=== PATIENT | female | born 1990 | race Caucasian/White ===

== ENCOUNTER 2017-07-01 23:29 | Emergency (ER) | payer SELFPAY ==
[2017-07-01 23:29] VITALS: BP 136/87; PULSE 95; RESP 16; TEMP 36.6; O2SAT 98; BMI 24.7
--- NOTE | 2017-07-01 23:41 | US_ITS ---
STUDY: FIRST TRIMESTER OBSTETRICAL ULTRASOUND REASON FOR EXAM: Female, 27 years old. Vaginal bleeding. Left lower quadrant pain LMP: April 30, 2017 TECHNIQUE: Transabdominal and Transvaginal PRIOR ULTRASOUND: None. FINDINGS: There is no demonstrated intrauterine gestational sac. The uterus measures 8.2 x 6 x 5.6. The endometrium is thickened and heterogeneous measures 23 mm in thickness. There is no demonstrated uterine fibroid. The cervix is closed. The right ovary is not visualized. The left ovary measures 3.6 x 2 point x2.3. There is no left ovarian cyst. There is no visualized left adnexal mass or complex lesion. There is a small amount of echogenic fluid in the pelvic cul-de-sac may represent hemorrhage. US/Transvaginal w/Preg US IMPRESSION: There is no evidence of intrauterine gestation. Small amount of echogenic fluid in the pelvic cul-de-sac suggesting hemorrhage . Electronically Signed: David Breen MD at 2:47 EDT Tel , Service support ,
[2017-07-01] MEDS: 0.9% Normal Saline 1,000 ML 1000 ML IV (23:56)
[2017-07-02 00:30] LABS: Absolute Lymphocyte Count 3.48 X10^3/ul (0.83-4.51); Absolute Neutrophil Count 5.5 X10^3/uL (2.0-7.7); Basophil# 0.02 X10^3/uL; Basophil% 0.2 % (0-1); Eosinophil# 0.21 X10^3/uL; Eosinophils% 2.1 % (0-5); Hematocrit 36.2 % (37-47); Hemoglobin 13.1 g/dl (12.0-15.0); Lymphocyte # 3.48 X10^3/ul (4.0); Lymphocyte % 35.5 % (19-41); Mean Corp Hgb Conc 36.2 g/gl (32-36); Mean Corpuscular Hgb 31.6 pg (27.0-32.0); Mean Corpuscular Volume 87.2 fL (81-99); Mean Platelet Vol. 9.9 fl (6.2-12.0); Monocyte# 0.56 X10^3/uL; Monocyte% 5.7 % (0-10); Neutrophil # 5.53 X10^3/uL (2.7-7.7); Neutrophil % 56.4 % (47-70); Platelet Count 217 K/mm3 (150-450); RBC Distribution Width CV 11.6 % (11.6-14.6); RBC Distribution Width SD 36.8 fl (35.1-43.9); Red Blood Count 4.15 M/mm3 (4.2-5.4); White Blood Count 9.8 K/mm3 (4.4-11.0)
[2017-07-02 00:32] LABS: POSITIVE COUNT NO; POSITIVE DIFFERENTIAL NO; POSITIVE MORPHOLOGY NO
[2017-07-02 01:28] LABS: Anion Gap 8 (5-15); BUN 11 mg/dL (7-18); BUN/Creat Ratio 19.2 RATIO (10-20); Calcium,Total 8.3 mg/dL (8.5-10.1); Chloride 105 mmol/L (98-107); Creatinine, Serum 0.57 mg/dL (0.55-1.02); EST Glomerular Filtration Rate 134 mL/min (>60); Est Glom Filt Rate - Afr Amer 163 mL/min (>60); Estimated Creatinine Clearance 122.64 ml/min; Glucose 88 mg/dL (74-106); Potassium 3.3 mmol/L (3.5-5.1); Sodium Level 138 mmol/L (136-145)
[2017-07-02 01:29] LABS: hCG Titer Quant., Serum 332 mIU/mL (<9 non-preg)
[2017-07-02 01:59] VITALS: BP 106/64; PULSE 84; RESP 16; O2SAT 99
--- NOTE | 2017-07-02 03:16 | ED.VISSUMM ---
- ER Visit Summary Date of Service: 07/02/17 Chief Complaint: [] Vaginal bleeding History of Present Illness: The patient is a 27 F [] complaining of sudden gush of vaginal blood just prior to arrival. Patient reports she is G3, P1 with a 6 week gestation. Reports abdominal discomfort and cramping. Denies nausea and vomiting. Denies fevers. Denies dysuria. Reports symptoms started at work. She is concerned for the possibility of a miscarriage. She reports one previous miscarriage. Past surgical history of breast augmentation. In past medical history. Physical Examination: [] Afebrile, vital signs stable. 27-year-old female in no acute distress. Conversational. Cardiovascular exam is regular rate and rhythm. Lungs are clear to auscultation. Abdomen is soft with mild bilateral adnexal discomfort on palpation. No guarding or rebound tenderness. Pelvic examination shows cervical os open to fingertip without any obvious tissue or active bleeding. Old blood in the vaginal vault. Remainder of exam is unremarkable. Test Results: [] Quantitative hCG measures 332. CBC, BMP normal. Transabdominal transvaginal ultrasound shows no intrauterine with some free fluid in the cul-de-sac, no right ovary visualized with normal appearing left ovary. ABO Rh: A+ blood. Emergency Department Course and Treatment: [] Patient is likely exhibiting incomplete . I did discuss the case with her LOCOMOTIVE CRANE OPERATOR practice covering physician who felt the patient should return in 24-48 hours for a repeat hCG. Patient remained hemodynamically stable throughout the ED course. She did receive 1 L fluid upon arrival. At this time we cannot completely rule out ectopic , however clinically she appears well and again with the low hCG is likely representing a incomplete . Patient was counseled regarding the importance of following up for a repeat hCG and returning to the emergency department immediately should she have worsening abdominal pain, syncope, vaginal bleeding. at the bedside is also amenable to discharge with close follow-up and understands all discharge instructions. All questions answered in layman's terms. Patient provided a outpatient slip for a repeat hCG as this is a holiday weekend at approximately 3 AM. Treatment Plan: [] Follow-up for repeat hCG. Follow-up closely with LOCOMOTIVE CRANE OPERATOR. Disposition: [] Discharge, stable. Impression: [] Incomplete , cannot rule out ectopic This note was generated with Rue89ation software. It may contain incorrect words, spelling, and punctuation that were not noted in review of the chart prior to signing ED Disposition - Plan for ED Patient: Chief Complaint: Vag Bld, Preg Referrals: Care Physician,No Primary [Primary Care Provider] -
--- NOTE | 2017-07-02 03:19 | ED.DCSUM_ITS ---
- ER Visit Summary Date of Service: 07/02/17 Chief Complaint: [] Vaginal bleeding History of Present Illness: The patient is a 27 F [] complaining of sudden gush of vaginal blood just prior to arrival. Patient reports she is G3, P1 with a 6 week gestation. Reports abdominal discomfort and cramping. Denies nausea and vomiting. Denies fevers. Denies dysuria. Reports symptoms started at work. She is concerned for the possibility of a miscarriage. She reports one previous miscarriage. Past surgical history of breast augmentation. In past medical history. Physical Examination: [] Afebrile, vital signs stable. 27-year-old female in no acute distress. Conversational. Cardiovascular exam is regular rate and rhythm. Lungs are clear to auscultation. Abdomen is soft with mild bilateral adnexal discomfort on palpation. No guarding or rebound tenderness. Pelvic examination shows cervical os open to fingertip without any obvious tissue or active bleeding. Old blood in the vaginal vault. Remainder of exam is unremarkable. Test Results: [] Quantitative hCG measures 332. CBC, BMP normal. Transabdominal transvaginal ultrasound shows no intrauterine with some free fluid in the cul-de- sac, no right ovary visualized with normal appearing left ovary. ABO Rh: A+ blood. Emergency Department Course and Treatment: [] Patient is likely exhibiting incomplete . I did discuss the case with her MANAGER BALANCE practice covering physician who felt the patient should return in 24- 48 hours for a repeat hCG. Patient remained hemodynamically stable throughout the ED course. She did receive 1 L fluid upon arrival. At this time we cannot completely rule out ectopic , however clinically she appears well and again with the low hCG is likely representing a incomplete . Patient was counseled regarding the importance of following up for a repeat hCG and returning to the emergency department immediately should she have worsening abdominal pain, syncope, vaginal bleeding. at the bedside is also amenable to discharge with close follow-up and understands all discharge instructions. All questions answered in layman's terms. Patient provided a outpatient slip for a repeat hCG as this is a holiday weekend at approximately 3 AM. Treatment Plan: [] Follow-up for repeat hCG. Follow-up closely with MANAGER BALANCE. Disposition: [] Discharge, stable. Impression: [] Incomplete , cannot rule out ectopic This note was generated with CheckiOation software. It may contain incorrect words, spelling, and punctuation that were not noted in review of the chart prior to signing ED Disposition - Plan for ED Patient: Chief Complaint: Vag Bld, Preg Referrals: Care Physician,No Primary [Primary Care Provider] -
--- NOTE | 2017-07-02 03:22 | ED.DEP ---
ED Disposition - Plan for ED Patient: Disposition: Home or Assisted Living Chief Complaint: Vag Bld, Preg Instructions: ED Miscarriage Incom Referrals: Care Physician,No Primary [Primary Care Provider] - Additional Instructions: Please present to this hospital for repeat hCG ( quantitative test) in 24-48 hours. Please return immediately should you have worsening pain or bleeding.
[2017-07-02 03:29] VITALS: RESP 16
== END 2017-07-02 03:30 | disposition home or self-care (01) ==
PROVIDERS: Emergency Provider Emergency Medicine
DX: O03.4 Incomplete spontaneous abortion without complication (principal)
CPT/HCPCS: 76817; 80048; 84702; 85025; 86900; 96360; 99283; J7030; A4216

== ENCOUNTER → 2017-07-04 16:33 | Outpatient (CLI) | payer SELFPAY ==
[2017-07-04 18:02] LABS: hCG Titer Quant., Serum 290 mIU/mL (<9 non-preg)
== END ==
PROVIDERS: Visit Provider Emergency Medicine
DX: O20.0 Threatened abortion (principal); Z3A.00 Weeks of gestation of pregnancy not specified
CPT/HCPCS: 36415; 84702

== ENCOUNTER → 2017-07-06 09:42 | Outpatient (CLI) | payer SELFPAY ==
[2017-07-06 10:20] LABS: hCG Titer Quant., Serum 233 mIU/mL (<9 non-preg)
== END ==
PROVIDERS: Visit Provider Specialist
DX: O36.80X0 Pregnancy with inconclusive fetal viability, not applicable or unspecified (principal)
CPT/HCPCS: 36415; 84702

== ENCOUNTER 2018-06-24 14:53 | Emergency (ER) | payer SELFPAY ==
[2018-06-24 14:54] VITALS: BP 122/78; PULSE 89; RESP 16; TEMP 36.3; O2SAT 99; BMI 28.2
== END 2018-06-24 17:17 | disposition left against medical advice (07) ==
LOC: ED 17:14
PROVIDERS: Emergency Provider Emergency Medicine
DX: R69 Illness, unspecified (principal)

== ENCOUNTER → 2018-09-17 11:39 | Outpatient (CLI) | payer BC, SELFPAY ==
[2018-09-17 15:26] LABS: hCG Titer Quant., Serum 20483 mIU/mL (1-3)
== END ==
PROVIDERS: Referring Provider Specialist; Visit Provider Specialist
DX: O36.80X1 Pregnancy with inconclusive fetal viability, fetus 1 (principal); Z3A.00 Weeks of gestation of pregnancy not specified
CPT/HCPCS: 36415; 84702

== ENCOUNTER → 2018-09-19 11:26 | Outpatient (CLI) | payer BC, SELFPAY ==
[2018-09-19 13:09] LABS: hCG Titer Quant., Serum 26527 mIU/mL (1-3)
== END ==
PROVIDERS: Referring Provider Specialist; Visit Provider Specialist
DX: O36.80X1 Pregnancy with inconclusive fetal viability, fetus 1 (principal); Z3A.00 Weeks of gestation of pregnancy not specified
CPT/HCPCS: 36415; 84702

== ENCOUNTER → 2018-09-27 12:15 | Outpatient (CLI) | payer BC, SELFPAY ==
--- NOTE | 2018-09-27 12:20 | US_ITS ---
STUDY: FIRST TRIMESTER OBSTETRICAL ULTRASOUND REASON FOR EXAM: Female, 28 years old. viability LMP: TECHNIQUE: Transvaginal TECHNICAL QUALITY: Adequate. PRIOR ULTRASOUND: None. FINDINGS: There is visualization of a single gestational sac in a normal intrauterine position. The mean sac diameter (MSD) measures 2.1 mm, indicating an estimated gestational age (EGA) of 7 weeks, 1 days. The gestational sac shape is within normal limits. There is a visualized yolk sac. The placenta is non-visualized. There is visualization of a live embryo. The crown-rump length (CRL) measures 1.4 cm, indicating an estimated gestational age (EGA) of 7 weeks, 0 days. There is demonstrated cardiac activity with a heart rate of 174 bpm. The estimated gestation age (EGA) by LMP is 7 weeks, 1 days. The estimated date of delivery (KRISTEN) by LMP is May 15 2019. The estimated gestation age (EGA) by US is 7 weeks, 3 days. The estimated date of delivery (KRISTEN) by US is May 13, 2019. The uterus measures 9.1 x 8.2 x 7.8 cm. There is no demonstrated uterine fibroid. The cervix is closed. Right ovary is nonvisualized. There is no adnexal mass The left ovary measures 2.5 x 1.4 x 2.2. There is no left ovarian cyst. There is no visualized left adnexal mass or complex lesion. There is no fluid in the cul de sac. US/Transvaginal w/Preg US IMPRESSION: Viable intrauterine approximately 7-8 weeks gestational age Electronically Signed: Jayjay Bender MD at 20:51 EDT , Service support ,
== END ==
LOC: OPUS 12:18
PROVIDERS: Referring Provider Specialist; Visit Provider Specialist
DX: O36.80X1 Pregnancy with inconclusive fetal viability, fetus 1 (principal); Z3A.00 Weeks of gestation of pregnancy not specified
CPT/HCPCS: 76817

== ENCOUNTER 2019-02-02 21:05 | Outpatient (CLI) | payer SELFPAY ==
[2019-02-02 21:36] VITALS: BMI 35.2
--- NOTE | 2019-02-06 00:06 | OB.TRI.NOTE ---
History of Present Illness Date of Service: 02/02/19 Was patient seen by the physician?: No Reason For Visit: R/O Date of Service: 02/02/19 Final KRISTEN: 05/15/19 Gestational age: 25 Weeks and 3 Days History of Present Illness: 28 yo AB 2 female w/ care elsewhere presents with CC of cramping to check for labor. Also decreased movement. Allergies No Known Allergies Allergy (Verified 02/02/19 22:13) NST - FHR Rate Baby A Baseline: 130-140s with accels to 160s Variability:: Moderate Accelerations:: 15 x 15 Decelerations:: None NST Reactive:: Yes, Appropriate for gestational age FHR Category:: Category I Uterine Activity:: No UCs noted. Impression/Plan 25 3/7 wk [id number] female False labor Reactive NST Home Follow up with primary OB provider as scheduled.
== END 2019-02-02 21:54 | disposition home or self-care (01) ==
LOC: WPOUT 21:13 → WP 21:14
PROVIDERS: Referring Provider Obstetrics & Gynecology; Visit Provider Obstetrics & Gynecology
DX: O36.8120 Decreased fetal movements, second trimester, not applicable or unspecified (principal); O47.02 False labor before 37 completed weeks of gestation, second trimester; Z3A.25 25 weeks gestation of pregnancy
CPT/HCPCS: 59050; 99218; G0378

== ENCOUNTER 2019-12-05 09:20 | Emergency (ER) | payer OTHER, SELFPAY ==
[2019-12-05 09:23] VITALS: BP 130/102; PULSE 100; RESP 16; TEMP 36.3; O2SAT 99; BMI 33.6
--- NOTE | 2019-12-05 09:37 | RAD_ITS ---
STUDY: X-RAY - LEFT WRIST REASON FOR EXAM: Female, 29 years old. Injury to left wrist 3 months ago, continued pain TECHNIQUE: 4 view(s) of the wrist were obtained. COMPARISON: None. FINDINGS: Normal visualized distal radius and ulna. Normal radiocarpal articulation. Normal distal radioulnar articulation. Normal carpal bones. Normal carpal articulations. Normal carpometacarpal articulation of the thumb. Normal second through fifth carpometacarpal articulations. Normal visualized metacarpal bones. The soft tissue structures are unremarkable. RAD/Wrist min 3 Views IMPRESSION: Normal x-ray examination of the wrist. Electronically Signed: Kimani Lopez, at 10:08 EDT , Service support ,
--- NOTE | 2019-12-05 09:38 | ED.DCSUM_ITS ---
- ER Visit Summary Date of Service: 12/05/19 Chief Complaint: Left wrist injury History of Present Illness: The patient is a 29 F who presents with a left wrist injury that occurred 3 months ago. Patient states she dropped a grill on it at that time. Patient states she was seen at the urgent care at that time. Patient states she had x-rays which were read by the urgent care physician as negative. Patient states she feels clicking and popping in her wrist. Patient states her pain is worse with certain movements. Patient describes her pain is sharp and stabbing. Patient states it is better with rest. Patient states she has a thumb spica brace which she has been using with some relief. Physical Examination: Vital signs are stable. Patient is afebrile. Patient is in no acute distress. Musculoskeletal exam reveals tenderness over the radial aspect of the left wrist. There is no edema or ecchymosis. There is no deformity. There is pain with flexion of the left thumb and ulnar deviation of the left wrist. There is no bony crepitance or step-off. Range of motion was limited in all motions of the left wrist secondary to pain. Radial pulses are equal bilaterally. Capillary refill is less than 2 seconds in all digits. Sensation was intact light touch in all digits. Test Results: X-rays of the left wrist were obtained. There is no acute fracture noted. This was interpreted by myself and the radiologist. Emergency Department Course and Treatment: Patient was given an ice pack. Patient was given a thumb spica splint. Patient was given a prescription for Naprosyn. Patient was instructed to ice and elevate the left wrist. Patient was instructed to follow-up with her primary care physician in 5 to 7 days. Patient was also given the name for Dr. Hector Shah who is on-call for orth opedics. Patient understood and was agreeable with the plan. All questions were answered. Disposition: Discharge home Impression: 1. Left wrist tendinitis This note was generated with [employer] dictation software. It may contain incorrect words, spelling, and punctuation that were not noted in review of the chart prior to signing ED Disposition - Plan for ED Patient: Disposition: Home or Assisted Living Diagnosis: Left wrist tendinitis Instructions: ED Sprain Wrist Prescriptions: Naproxen [Naprosyn] 500 mg PO BID PRN #20 tab Prescription Printed Referrals: eHctor Shah MD [STAFF PHYSICIAN] - 5-7 Days Duc Martinez MD [STAFF PHYSICIAN] - 5-7 Days
== END 2019-12-05 10:27 | disposition home or self-care (01) ==
PROVIDERS: Emergency Provider Emergency Medicine
DX: M77.9 Enthesopathy, unspecified (principal); F17.200 Nicotine dependence, unspecified, uncomplicated; F41.9 Anxiety disorder, unspecified
CPT/HCPCS: 73110; 99283

== ENCOUNTER → 2020-06-30 10:41 | Outpatient (CLI) | payer OTHER, SELFPAY ==
[2020-06-30 13:46] LABS: Absolute Lymphocyte Count 2.72 X10^3/uL (0.83-4.51); Absolute Neutrophil Count 5.6 X10^3/uL (2.0-7.7); Basophil# 0.04 X10^3/uL; Basophil% 0.4 % (0-1); Eosinophil# 0.32 X10^3/uL; Eosinophils% 3.5 % (0-5); Hematocrit 41.1 % (37-47); Hemoglobin 13.9 g/dL (12.0-15.0); Lymphocyte # 2.72 X10^3/ul (4.0); Lymphocyte % 29.8 % (19-41); Mean Corp Hgb Conc 33.8 g/dL (32-36); Mean Corpuscular Hgb 29.3 pg (27.0-32.0); Mean Corpuscular Volume 86.7 fL (81-99); Mean Platelet Vol. 10.2 fl (6.2-12.0); Monocyte# 0.48 X10^3/uL; Monocyte% 5.3 % (0-10); NRBC Flagged by Analyzer 0 % (0-5); Neutrophil # 5.55 X10^3/uL (2.7-7.7); Neutrophil % 60.7 % (47-70); Platelet Count 316 K/mm3 (150-450); RBC Distribution Width SD 38.7 fl (35.1-43.9); Red Blood Count 4.74 M/mm3 (4.2-5.4); White Blood Count 9.1 K/mm3 (4.4-11.0)
[2020-06-30 14:36] LABS: HIV - WCH Non-Reactive (Nonreactive); Hepatitis B Surface Antigen Non-Reactive (Nonreactive); Hepatitis C Antibody Non-Reactive (Nonreactive); Rubella IgG Reactive (Nonreactive); Syphilis Antibodies Non-reactive
[2020-07-03 16:20] LABS: HPV APTIMA, High Risk Negative (Negative)
[2020-07-03 20:08] LABS: Chlamydia By Nucleic Acid AMP Negative (Negative)
[2020-07-03 20:32] LABS: Gonococcus By Nucleic Acid AMP Negative (Negative)
== END ==
PROVIDERS: Visit Provider Student in an Organized Health Care Education/Training Program
DX: Z32.01 Encounter for pregnancy test, result positive (principal)
CPT/HCPCS: 36415; 85025; 86703; 86762; 86780; 86803; 87086; 87088; 87340; 87491; 87591; 87624; 88175; G0145

== ENCOUNTER 2021-01-16 11:59 | Outpatient (CLI) | payer OTHER, SELFPAY ==
[2021-01-16 12:15] VITALS: BMI 37.2
[2021-01-16 12:24] VITALS: TEMP 36.5
[2021-01-16 12:25] VITALS: BP 120/69; PULSE 81
[2021-01-16 13:44] LABS: Color, Urine Yellow (Yellow); Glucose, Dipstick Normal (Normal); Ketone-Dipstick Negative (Negative); Leukocyte Esterase-Dipstick Negative /ul (Negative); Nitrite-Dipstick Negative (Negative); Occult Blood-Urine Negative /ul (Negative); Protein-Dipstick Negative (Negative); Urine Bilirubin Dipstick Negative (Negative); Urine Clarity Clear (Clear); Urine Urobilinogen Normal (Normal)
[2021-01-16 14:17] VITALS: BP 125/78; PULSE 74; TEMP 36.4
[2021-01-16 15:01] VITALS: TEMP 36.3
[2021-01-16 15:02] VITALS: BP 120/67; PULSE 79
--- NOTE | 2021-01-16 16:00 | OB.TRI.NOTE ---
HPI - General HPI Narrative MYKE BURGOS, is a 30 F who presents with c/o vaginal bleeding. She has a hx prior section. PFSH PFSH Medical History (Updated 02/10/21 @ 08:[address] Simi France MD) Gestational diabetes depression Home Medications [id number] 1 tab PO DAILY 01/25/21 [History Last Taken 01/24/21 20:00] oxycodone 5 mg PO Q6H PRN 5 Days #20 tab 01/26/21 [Rx Last Taken Unknown] Allergy/AdvReac Type Severity Reaction Status Date / Time No Known Allergies Allergy Verified 01/25/21 05:17 Surgical History (Updated 01/25/21 @ 05:39 by Bambi Mccollum) History of surgery Previous section Social History Smoking Status: Former smoker History Elective abortions Hx Para 2 Spontaneous abortions Hx # Term Pregnancies Ectopic pregnancies Hx # Pregnancies Multiple births # of living children NST FHR Rate Baby A Baseline: 120 Variability:: Moderate Accelerations:: 15 x 15 Decelerations:: None NST Reactive:: Yes FHR Category:: Category I Uterine Activity:: 0/10 Assessment & Plan (1) 36 weeks gestation of : COMMENT: KRISTEN 02/13/21 PLAN: Cat I NST, reactive No evidence of labor with cervix closed per RN exam and no bleeding on in house observation d/c home
== END 2021-01-16 15:35 | disposition home or self-care (01) ==
LOC: WPOUT 12:07 → WP 12:08
PROVIDERS: Visit Provider Obstetrics & Gynecology
DX: O46.93 Antepartum hemorrhage, unspecified, third trimester (principal); Z3A.36 36 weeks gestation of pregnancy; Z87.891 Personal history of nicotine dependence
CPT/HCPCS: 59025; 59050; 81002; 99218; G0378

== ENCOUNTER → 2021-01-18 14:20 | Outpatient (CLI) | payer OTHER, SELFPAY | LOC: LABSPEC 14:30 | PROVIDERS: Visit Provider Obstetrics & Gynecology | DX: Z36.85 Encounter for antenatal screening for Streptococcus B (principal) | CPT/HCPCS: 87081 ==

== ENCOUNTER → 2021-01-18 14:25 | Outpatient (CLI) | payer OTHER, SELFPAY | LOC: PSN 14:26 | PROVIDERS: Visit Provider Obstetrics & Gynecology | DX: Z11.59 Encounter for screening for other viral diseases (principal) | CPT/HCPCS: 87635; C9803; U0005; U0003 ==

== ENCOUNTER 2021-01-25 05:00 | Inpatient (IN) | payer OTHER, SELFPAY ==
[2021-01-25] VITALS (16 sets, daily range): BP systolic 111–129; BP diastolic 51–77; PULSE 66–84; RESP 14–20; TEMP 36–36.7; O2SAT 93–100; BMI 37.3
--- NOTE | 2021-01-25 | FALS_PTH ---
PATIENT: MYKE BURGOS LOC: [facility] U#:[id number] AGE/SX: 30/F ROOM: [facility] RE01/25/[address]: Dr. Eyad Shah MD : 1990 BED: 1 DIS: 01/26/2021 SPEC #: [id number] RECD: 01/25/21 10:42 STATUS: BLANKA REQ #: [id number] ANI: 01/25/21 00:[address]: Eyad Shah DEPT: SURGICAL PATHOLOGY RECD BY: Killian Schuster ENTERED: 01/25/21 10:42 SP TYPE: FALL TUBES OTHR DR: No Primary Care Phys Tissues: Fallopian tube Procedures: Surgery Specimen Level II HEADER OPERATION: Tubal ligation PRE-OP DIAGNOSIS: Sterilization TISSUE SUBMITTED: Bilateral fallopian tubes, suture in right MICROSCOPIC DIAGNOSIS Bilateral fallopian tubes, salpingectomy: Bilateral fallopian tubes, no pathologic diagnosis. Focal decidual changes, serosal surface right fallopian tube. SJ:colby 01/26/2021 MICROSCOPIC DESCRIPTION Slides are reviewed. GROSS DESCRIPTION Received in fixative is one container labeled with the patient's name and designated bilateral fallopian tubes, stitch right. The specimen consists of bilateral fallopian tubes including fimbrial ends. The right fallopian tube measures 8 cm in length and up to 1 cm in diameter and the left fallopian tube measures 8.5 cm in length and up to 1 cm in diameter. Sections reveal unremarkable cut surfaces. Tool And Equipment Rental Clerk sections are submitted in two cassettes as follows: 1 ? right fallopian tube, 2 ? left fallopian tube. / NISHA:colby 01/25/2021 TC:4 CPT: 20300 x2
[2021-01-25] MEDS: Lactated Ringers 1,000 ML 999 ML IV (05:30)
[2021-01-25] MEDS: Acetaminophen 500 MG Tablet 1000 MG PO ×3 (05:47→18:20)
[2021-01-25 05:50] LABS: Absolute Lymphocyte Count 1.94 X10^3/uL (0.83-4.51); Absolute Neutrophil Count 6.4 X10^3/uL (2.0-7.7); Basophil# 0.04 X10^3/uL; Basophil% 0.4 % (0-1); Eosinophils% 2.2 % (0-5); Hemoglobin 11.6 g/dL (12.0-15.0); Lymphocyte # 1.94 X10^3/ul (0.83-4.51); Lymphocyte % 21.2 % (19-41); Mean Corp Hgb Conc 35.2 g/dL (32-36); Mean Corpuscular Hgb 30.4 pg (27.0-32.0); Mean Corpuscular Volume 86.4 fL (81-99); Mean Platelet Vol. 10.3 fl (6.2-12.0); Monocyte# 0.49 X10^3/uL; Monocyte% 5.3 % (0-10); NRBC Flagged by Analyzer 0 % (0-5); Neutrophil # 6.41 X10^3/uL (2.7-7.7); Platelet Count 232 K/mm3 (150-450); RBC Distribution Width CV 13.4 % (11.6-14.6); RBC Distribution Width SD 41.3 fl (35.1-43.9); Red Blood Count 3.82 M/mm3 (4.2-5.4); White Blood Count 9.2 K/mm3 (4.4-11.0)
[2021-01-25] MEDS: Lactated Ringers 1,000 ML 150 ML IV (06:35)
[2021-01-25] MEDS: Sodium Citrate/Citric Acid 30 ML UDC PO (07:02)
--- NOTE | 2021-01-25 07:20 | PCM.HP.BLA ---
History and Physical Date of Admission: 01/25/21 Chief complaint: Repeat section bilateral tubal ligation History present illness: 30-year-old at 37 weeks and 2 days with KRISTEN: 02/13/2021 by LMP arrives for repeat section and bilateral tubal ligation. Denies headache, visual changes, chest pain, shortness of breath, nausea vomiting, right upper quadrant pain. Patient states good movement. Obstetric history: G1: SAB G2: 41-week primary section G3: SAB G4: SAB G5: SAB G6: 39 weeks repeat section G7: Current Past medical history: GDM A2 Medications: Levemir 40 units every morning 20 units every afternoon Humalog 30 units 3 times daily Past surgical history: section x2, left ankle, breast augmentation Allergies no known drug allergies Social history: Former smoker, denies alcohol or drug use Family history: Denies history DVT PE Review of systems: Besides above pertinent positives a full review of systems was performed and found to be negative Physical exam: Vitals: Blood pressure 123/72 pulse 78 respiratory rate 17 temp 97.1 Fahrenheit SPO2 95% on room air General: Normal-appearing no acute distress HEENT: Normocephalic atraumatic no cervical of adenopathy Cardiac/respiratory: No use of accessory muscles, nonlabored breathing Abdomen: Soft, nontender, gravid Extremities: No peripheral edema normal peripheral pulses Psych: Normal affect normal demeanor nonpressured speech Labs: White blood cell count 9.2 hemoglobin 11.6 hematocrit 33.0% platelets 232 blood type a positive antibody negative Assessment plan: 30-year-old at 37 weeks and 2 days with poorly controlled gestational diabetes for repeat section bilateral tubal ligation Admit labor and delivery 9 CFM GBS negative Ancef 2 g GDM A2: We will monitor blood sugars Routine orders Anesthesia to see
[2021-01-25] MEDS: Cefazolin 2 GM in 0.9% Normal Saline 100 ML IV (07:24)
--- NOTE | 2021-01-25 08:21 | EX.PCM.OBRPT ---
Details Operative Information Date of Procedure: 01/25/21 Pre-Operative Diagnosis: Term, poorly controlled gestational diabetes Post-Operative Diagnosis: Term, poorly controlled gestational diabetes director diversity #1: Jaime Colon Findings Description of Procedure: Procedure: Repeat low transverse section Via Pfannenstiel incision, bilateral tubal ligation Surgeon: Eyad Shah MD Anesthesia: Spinal EBL: 600 cc Urine output: 50 cc none IV fluids: 800 cc Complications: None Specimen: Bilateral fallopian tubes Findings: Male infant in vertex position Apgars 8 9. Normal uterus, tubes, and ovaries. Consent: Patient with a history of section and desire for permanent sterilization along with poorly controlled gestational diabetes in need of repeat low transverse section and bilateral tubal ligation. Patient understands the risk of the procedure include but are not limited to visceral or vascular injury, prolonged hospitalization, blood loss and need for transfusion, reoperation. Patient state understanding wish to proceed. Procedure: Patient was brought back to the OR where spinal anesthesia found to be adequate. 2 g of Ancef were given for infection prophylaxis. Patient was prepared and draped in a dorsal supine position with leftward tilt. A Pfannenstiel incision was made the at the skin with a scalpel. The incision is carried down to the fascia with scalpel. The fascia excised and extended laterally. Inferior aspect of the fascia was grasped and the underlying rectus and pyramidalis muscle were dissected off sharply. In a similar fashion the superior aspect of the fascia was grasped and the underlying rectus muscle was dissected off sharply. Rectus muscle was dissected at the midline down to the level of the pubic symphysis. Preperitoneal fatty tissue was noted peritoneum was entered bluntly. Peritoneum was extended superiorly and inferiorly with good visualization of bladder. Bladder blade was inserted and vesicouterine peritoneum was identified. Low transverse hysterotomy was made. Hand was placed into the hysterotomy and gentle fundal pressure was applied once the head was brought into the incision and the bladder blade was removed. Head and shoulders were delivered with ease. Cord was cut and clamped. Baby is handed off to nursing. Placenta was delivered via cord traction and fundal massage. IV oxytocin was initiated to facilitate uterine contractions. Uterus was exteriorized. Uterus was wiped out with dry laparotomy sponge in order to remove remaining placental membranes. Hysterotomy was closed in a continuous running fashion. Second layer was performed. Good hemostasis was noted. Right fallopian tube was identified out to the fimbriae and using a LigaSure device the mesosalpinx was cut and cauterized, right fallopian tube to pathology. In a similar fashion the left fallopian tube was identified out to the fimbria and using a LigaSure device the mesosalpinx was cut and cauterized, low fallopian tubes sent to pathology. Good hemostasis was noted at all surgical sites. Uterus was placed back into the abdominal cavity and reinspected, good hemostasis was noted. Muscle was reapproximated with horizontal mattress sutures. Fascia was closed in continuous running fashion. Skin was closed in a subcuticular fashion. All counts correct x2. Patient tolerated the procedure well and was brought to recovery in stable condition.
[2021-01-25] MEDS: Oxytocin 30 units/NS 500 ml 30 UNITS/500 ML IV.SOLN 167 UNITS IV (08:45)
[2021-01-25 09:06] LABS: Bedside Glucose 94 mg/dL (70-110)
[2021-01-25 09:11] LABS: Pathology Specimen OB SEE PATHOLOGY REPORT
[2021-01-25] MEDS: Ketorolac 30 MG/ML Syringe IV ×3 (09:17→21:27)
[2021-01-25] MEDS: 0.9% Saline Lock 10 ML Syringe IV ×3 (09:18→15:00)
[2021-01-25 09:30] LABS: Bedside Glucose 98 mg/dL (70-110)
[2021-01-25] MEDS: Senna/Docusate Sodium 1 Tablet PO (12:01)
[2021-01-25] MEDS: DiphenhydrAMINE 25 MG Capsule PO (13:25)
[2021-01-25] MEDS: Nalbuphine 10 MG/ML Ampul 5 MG IV (20:25)
[2021-01-26 00:54] VITALS: BP 100/46; PULSE 87; RESP 18; TEMP 36.1
[2021-01-26] MEDS: Acetaminophen 500 MG Tablet 1000 MG PO ×3 (00:57→12:10)
[2021-01-26] MEDS: Nalbuphine 10 MG/ML Ampul 5 MG IV (00:57)
[2021-01-26 03:24] VITALS: BP 116/74; PULSE 85; RESP 16; TEMP 36.6
[2021-01-26] MEDS: Ketorolac 30 MG/ML Syringe IV (03:26)
[2021-01-26 06:10] LABS: Bedside Glucose 88 mg/dL (70-110)
[2021-01-26 06:22] LABS: Hematocrit 29.5 % (37-47); Hemoglobin 10.1 g/dL (12.0-15.0); Mean Corp Hgb Conc 34.2 g/dL (32-36); Mean Corpuscular Hgb 30.1 pg (27.0-32.0); Mean Corpuscular Volume 88.1 fL (81-99); Mean Platelet Vol. 10.2 fl (6.2-12.0); Platelet Count 190 K/mm3 (150-450); RBC Distribution Width CV 13.8 % (11.6-14.6); RBC Distribution Width SD 43.8 fl (35.1-43.9); Red Blood Count 3.35 M/mm3 (4.2-5.4)
--- NOTE | 2021-01-26 07:29 | PN.OBGYN_ITS ---
Subjective Subjective Patient with mild discomfort overnight and incision. Otherwise no complaints Objective Data Objective Data Vital Signs: Vital Signs Temp Pulse Resp BP Pulse Ox 98 F 85 16 116/74 100 01/26/21 03:24 01/26/21 03:24 01/26/21 03:24 01/26/21 03:24 01/25/21 18:23 Oxygen Delivery Method Room Air Weight: 210 lb 6.4 oz Body Mass Index (BMI) 37.3 Intake & Output: Intake and Output for Last 24 Hours 01/24/21 01/25/21 01/26/21 23:59 23:59 23:59 Intake Total 2935 / 2935 Output Total 600 / 600 Balance 2335 / 2335 Lab / Micro Data Result Diagrams: 01/26/21 06:15 Labs: Laboratory Results - last 24 hr 01/25/21 05:38: POC Glucose 94 01/25/21 09:18: POC Glucose 98 01/26/21 06:02: POC Glucose 88 01/26/21 06:15: WBC 9.0, RBC 3.35 L, Hgb 10.1 L, Hct 29.5 L, MCV 88.1, MCH 30.1, MCHC 34.2, RDW Std Deviation 43.8, RDW Coeff of Pauly 13.8, Plt Count 190, MPV 10.2 Physical Exam Const alert, oriented x3, no apparent distress, average body habitus, healthy appearing and well nourished HEENT normocephalic and moist oral mucous membranes Head and Scalp: atraumatic Face and Sinus: normal facial exam Eyes PERRL Neck full ROM Resp normal respiratory effort, no retractions and no use of accessory muscles Extremity normal to inspection, full ROM and no clubbing, cyanosis or edema Psych mental status grossly normal, affect normal, speech normal and activity/motor behavior normal Assessment & Plan (1) delivery delivered: PLAN: Postoperative day 1 status post repeat section bilateral tubal ligation. Baby being transported to [facility] for respiratory support. Patient desires discharge home likely tomorrow
[2021-01-26 07:57] VITALS: BP 123/67; PULSE 77; RESP 16; TEMP 36.7
[2021-01-26] MEDS: Ibuprofen 600 MG Tablet PO ×2 (09:09→14:58)
[2021-01-26] MEDS: Senna/Docusate Sodium 1 Tablet PO (10:02)
[2021-01-26 12:42] VITALS: BP 114/65; PULSE 86; RESP 16; TEMP 36.6
--- NOTE | 2021-01-26 13:28 | PCM.DC ---
Discharge Instructions Diet Discharge Diet: No restrictions Activity Discharge Activity: Return to Normal Activity and May Shower May resume sexual activity in: 4-6 weeks Weight Bearing Status: Weight bearing as tolerated Lifting Restrictions: No greater than 25 pounds Dressing / Incision Call your doctor if you observe: Fever of 101 or Higher, Change in Color, Inability to urinate, Using more than 1 pad per hour, Shortness of breath, Dizziness, Swelling in the ankles, Chest pain and Calf discomfort Remove Dressing in: 1 week Cleanse incision/area with: Soap & Water Follow Up Care Please Follow Up With: Eyad Shah MD When: 2-week and 6-week visits Test Results: Test results from this visit will be discussed in further detail at your follow-up appointment, if applicable. Discharge Plan Admission Admit Date/Time: 01/25/21 05:00 Attending Provider: Eyad Shah Primary Care Provider: Care Physician,Joycelyn Primary Discharge Orders/Prescriptions Prescriptions: New oxycodone 5 mg Tablet 5 mg PO Q6H PRN (Reason: pain) 5 Days Qty: 20 RF: 0 Continued [id number] 1 mg Tablet 1 tab PO DAILY RF: 0 Discontinued insulin lispro [Humalog KwikPen Insulin] 100 unit/mL Insulin Pen 30 unit SUBCUT TID RF: 0 Levemir FlexTouch U-100 Insuln 100 unit/mL (3 mL) Insulin Pen 40 unit SUBCUT BREAKFAST RF: 0 Levemir FlexTouch U-100 Insuln 100 unit/mL (3 mL) Insulin Pen 20 unit SUBCUT QHS RF: 0 Referrals / Follow Up: Care Physician,No Primary [Primary Care Provider] - Disposition Disposition (needs filled in before D/C Order can be placed): Home, Self Care
== END 2021-01-26 15:05 | disposition home or self-care (01) | DRG 785 ==
PROVIDERS: Admitting Provider Obstetrics & Gynecology; Visit Provider Obstetrics & Gynecology
PROC: 10D00Z1 Extraction of Products of Conception, Low, Open Approach (ICD-10-PCS; CPT 59514; principal; 2021-01-25 07:15)
DX: O34.211 Maternal care for low transverse scar from previous cesarean delivery (principal); O24.429 Gestational diabetes mellitus in childbirth, unspecified control; Z37.0 Single live birth; Z30.2 Encounter for sterilization; Z3A.37 37 weeks gestation of pregnancy; Z87.891 Personal history of nicotine dependence
CPT/HCPCS: 82962; 85025; 85027; 86850; 86900; 86901; 88302; 99218; 99251; J7120; A4216; G0378; G0463

== ENCOUNTER → 2021-03-10 10:34 | Outpatient (CLI) | payer OTHER, SELFPAY ==
[2021-03-10 13:21] LABS: Glucose 2 Hour Postprandial 78 mg/dL (<140)
== END ==
PROVIDERS: Visit Provider Obstetrics & Gynecology
DX: Z86.32 Personal history of gestational diabetes (principal)
CPT/HCPCS: 36415; 82950

== ENCOUNTER 2021-12-12 15:58 | Emergency (ER) | payer OTHER, SELFPAY ==
[2021-12-12 15:58] VITALS: BP 118/86; PULSE 64; RESP 18; TEMP 36.4; O2SAT 100; BMI 25.1
[2021-12-12 16:21] VITALS: BP 138/80; PULSE 71; RESP 15; TEMP 36.7; O2SAT 97
[2021-12-12 16:30] VITALS: BMI 26.4
--- NOTE | 2021-12-12 17:03 | EDS_ITS ---
HPI History of Present Illness Chief Complaint: Headache Detail of Chief Complaint: That started yesterday Informant: patient Narrative Narrative: Patient was seen and department complaint of a headache that started yesterday. She states that initially came on gradually and was more mild yesterday and when she woke up today she had severe pain at made her face feel strange and she could feel the pain going down the right side of her neck. Headache is right- sided. She complains of photophobia. She complains of nausea but no vomiting. She does get an occasional migraine but this is the worst headache she is ever had. She is never had symptoms like this before. Patient does have a family history of brain aneurysms and that her mother required surgery for brain aneurysms. Patient denies recent illness. She denies fever or cough. She denies falls or head injuries. Prior similar symptoms: No PFSH PFSH Medical History (Updated 12/12/21 @ 18:[address] Delisa Shanks, DO) Gestational diabetes depression Home Medications [id number] 1 mg tablet 1 tab PO DAILY Check with primary doctor 01/25/21 [History Last Taken 01/24/21 20:00] acetaminophen 500 mg tablet 500 mg PO Q6H PRN Pain 12/12/21 [History Last Taken Unknown] Allergy/AdvReac Type Severity Reaction Status Date / Time No Known Allergies Allergy Verified 12/12/21 16:28 Surgical History History of surgery Previous section Social History Smoking Status: Current every day smoker tobacco type: cigars ROS ROS ED Review of Systems ROS Unobtainable: other Constitutional Constitutional ED: Reports lethargy; Denies chills, fever(s), sweats or weight loss Eyes Eyes: Denies blurry vision, change in vision or diplopia ENT ENT ED: Denies rhinorrhea or sore throat Cardiovascular Cardiovascular: Denies chest pain, orthopnea or racing heartbeat Respiratory/Chest Respiratory/Chest: Denies cough, dyspnea, dyspnea on exertion, orthopnea or sputum Gastrointestinal Gastrointestinal: Reports nausea; Denies abdominal pain, diarrhea or vomiting Genitourinary Genitourinary ED: Denies dysuria, hematuria or urinary frequency Musculoskeletal Musculoskeletal: Denies arthralgias, back pain, myalgias or neck pain Integumentary Denies abscess, Abrasions or rash Neurologic Neurologic: Reports headache(s); Denies weakness Psychiatric Psychiatric: Denies anxiety, depression or suicidal thoughts Endocrine Endocrinology: Denies polydipsia, polyphagia or polyuria Hematologic/Lymphatic Hematologic/Lymphatic: Denies easy bleeding, easy bruising or lymphadenopathy Allergic/Immunologic Allergic/Immunologic ED: Denies mouth swelling, tongue swelling or urticaria EXAM Physical Exam Const Vital Signs: 12/12/21 15:58 12/12/21 16:21 12/12/21 18:04 Temperature 97.5 F L 98.0 F Temperature Source Temporal Oral Pulse Rate 64 71 59 L Respiratory Rate 18 15 20 H Blood Pressure 118/86 H 138/80 H 115/79 Blood Pressure Mean 96 99 91 Pulse Ox 100 97 100 Oxygen Delivery Method Room Air Room Air Room Air Positive well nourished and well developed General Appearance ED: well developed and NAD HEENT Reports TM's clear and moist mucous membranes normocephalic and atraumatic; Negative for trauma or tenderness Tympanic Membrane ED: Yes TM's clear Eyes PERRL and EOMs intact bilaterally General Eye ED: Negative for pale conjunctiva or scleral icterus Neck no lymphadenopathy, supple and no JVD General: Negative for tenderness Chest Wall inspection of chest normal and palpation of chest normal Chest: Negative for tenderness Resp normal respiratory effort and clear to auscultation bilaterally Effort and Inspection: Negative for respiratory distress or pain with movement Auscultation: Negative for rhonchi, wheezes or diminished lung sounds Cardio regular rate, regular rhythm, S1 normal heart sound, S2 normal heart sound and no murmurs Peripheral Pulses: pulses 2+ throughout GI normal to inspection, nondistended, normoactive bowel sounds, soft to palpation, non-tender, non-distended and no masses Back/Spine no CVA tenderness and no thoracic nor lumbar tenderness Extremity normal to inspection General Extremety ED: Negative for edema General Extremity: Negative for edema Neuro oriented x3, CN's II-XII intact bilaterally, no sensory deficits noted and gait normal Neuro Narrative: Finger-nose and heel edwards testing within normal limits, negative Romberg, negative pronator drift, fundi benign Sensorium / Orientation: awake, alert, oriented to person, oriented to place and oriented to time Motor Exam: strength 5/5 throughout and strength abnormal Psych mental status grossly normal Skin no rashes or lesions noted and no wounds MDM MDM MDM Narrative Medical decision making narrative: IV line established on arrival. Patient was given Reglan, Benadryl, and Toradol as well as a liter of same fluid bolus. Given patient's family history of brain aneurysms and atypical headache with radiation into her neck felt it was warranted to obtain a CTA of the head and neck which was performed and was read as normal. Patient did have good pain relief with treatment in the emergency department. She was able to close her eyes and fall asleep for short time and feels significantly improved. At this point she was also given Decadron 10 mg IV. I suspect likely a complex migraine etiology. Patient will be given referral to neurology for follow-up. Patient advised to return if worsening headache, difficulty with balance or speech, or condition should worsen anyway. Lab Data Attestation: I reviewed the patient's lab results. Labs: Laboratory Results - last 24 hr 12/12/21 12/12/21 17:20 17:20 WBC 7.7 RBC 4.46 Hgb 13.4 Hct 40.0 MCV 89.7 MCH 30.0 MCHC 33.5 RDW Std Deviation 41.0 RDW Coeff of Pauly 12.4 Plt Count 264 MPV 9.7 Immature Gran % (Auto) 0.300 Neut % (Auto) 46.0 L Lymph % (Auto) 42.3 [place] % (Auto) 5.2 Eos % (Auto) 5.7 H Baso % (Auto) 0.5 Absolute Neuts (auto) 3.5 Absolute Lymphs (auto) 3.25 Nucleated RBC % 0 Sodium 140 Potassium 3.8 Chloride 109 H Carbon Dioxide 25.0 Anion Gap 6 BUN 11 Creatinine 0.68 Estim Creat Clear Calc 99.16 Est GFR (MDRD) Af Amer 130 Est GFR (MDRD) Non-Af 108 BUN/Creatinine Ratio 16.3 Glucose 89 Calcium 9.3 Radiography Diagnostic Testing: Clinical Impression(s) from Imaging Studies Head/Neck CTA 12/12/21 17:46 IMPRESSION: Normal unenhanced CT scan of the brain. Electronically Signed: Remi Miles MD at 18:28 EDT , Discharge Plan Triage Chief Complaint: Headache ED Provider: Delisa Shanks Dx/Rx/DC Orders Clinical Impression: Migraine Instructions: ED Headache Unspecified, ED, Migraine (Classical) Prescriptions: No Action [id number] 1 mg Tablet 1 tab PO DAILY acetaminophen 500 mg Tablet 500 mg PO Q6H PRN (Reason: Pain) Primary Care Provider: Care Physician,No Primary Referrals: Alfredo Quinn MD [Non-Staff -Ordering Privileges] - 3-5 Days Care Physician,No Primary [Primary Care Provider] - Disposition Disposition: Home, Self Care
[2021-12-12] MEDS: 0.9% Normal Saline 1,000 ML 1000 ML IV (17:16)
[2021-12-12] MEDS: Ketorolac 15 MG/ML Vial IV (17:16)
[2021-12-12] MEDS: DiphenhydrAMINE 50 MG/ML Syringe 25 MG IV (17:17)
[2021-12-12] MEDS: Metoclopramide 10 MG/2 ML Vial IV (17:18)
[2021-12-12 17:29] LABS: Absolute Lymphocyte Count 3.25 X10^3/uL (0.83-4.51); Absolute Neutrophil Count 3.5 X10^3/uL (2.0-7.7); Basophil# 0.04 X10^3/uL; Basophil% 0.5 % (0-1); Eosinophil# 0.44 X10^3/uL; Eosinophils% 5.7 % (0-5); Hemoglobin 13.4 g/dL (12.0-15.0); Lymphocyte # 3.25 X10^3/ul (0.83-4.51); Lymphocyte % 42.3 % (19-41); Mean Corp Hgb Conc 33.5 g/dL (32-36); Mean Corpuscular Volume 89.7 fL (81-99); Mean Platelet Vol. 9.7 fl (6.2-12.0); Monocyte% 5.2 % (0-10); NRBC Flagged by Analyzer 0 % (0-5); Neutrophil # 3.53 X10^3/uL (2.7-7.7); Platelet Count 264 K/mm3 (150-450); RBC Distribution Width CV 12.4 % (11.6-14.6); Red Blood Count 4.46 M/mm3 (4.2-5.4); White Blood Count 7.7 K/mm3 (4.4-11.0)
[2021-12-12 17:43] LABS: Anion Gap 6 (5-15); BUN 11 mg/dL (7-18); BUN/Creat Ratio 16.3 RATIO (10-20); Calcium,Total 9.3 mg/dL (8.5-10.1); Chloride 109 mmol/L (98-107); Creatinine, Serum 0.68 mg/dL (0.55-1.02); EST Glomerular Filtration Rate 108 mL/min (>60); Est Glom Filt Rate - Afr Amer 130 mL/min (>60); Estimated Creatinine Clearance 99.16 ml/min; Glucose 89 mg/dL (74-106); Potassium 3.8 mmol/L (3.5-5.1); Sodium Level 140 mmol/L (136-145)
--- NOTE | 2021-12-12 17:46 | CT_ITS ---
STUDY: CTA HEAD AND NECK WITH CONTRAST REASON FOR EXAM: Female, 31 years old. head and neck pain RADIATION DOSAGE (If Supplied By Facility): CTDIvol = ( 19.41 ) mGy, DLP = ( 670.91 ) mGycm TECHNIQUE: CT angiography was performed with a multi-detector CT scanner. Data acquisition was obtained from the skull base through the vertex following intravenous administration of IV 75mL [id number]-[id number]. MIP images were reconstructed from the axial data set. Post-processing of the angiographic images was performed, with multiplanar reformation and 3D reconstruction. Individualized dose optimization techniques were used for this CT. COMPARISON: No relevant priors. FINDINGS: Normal bilateral petrous carotid arteries. Normal right cavernous carotid artery with a normal supraclinoid bifurcation. Normal left cavernous carotid artery with a normal supraclinoid bifurcation. Normal right A1 segments of the anterior cerebral artery. Normal left A1 segments of the anterior cerebral artery. Normal intact anterior communicating artery (ACOM). Normal bilateral A2 segments of the anterior cerebral arteries. Normal right M1 and M2 segments of the middle cerebral arteries, with a normal M1 bifurcation. Normal left M1 and M2 segments of the middle cerebral arteries, with a normal M1 bifurcation. There is a persistent origin of the right posterior cerebral artery with absence of the posterior communicating artery (PCOM). Normal left posterior communicating artery (PCOM). Hypoplastic left vertebral artery terminates as the left posterior inferior cerebral artery. Oormal basilar artery with a normal basilar bifurcation. The visualized bilateral superior cerebellar (SCA) arteries are normal. Normal bilateral P1, P2 and visualized P3 segments of the posterior cerebral arteries. There is no demonstrated aneurysm of the [place]. There is no demonstrated abnormality of the visualized brain. AORTIC ARCH: Normal visualized aortic arch. Normal origins of the brachiocephalic, left common carotid, and left subclavian arteries. RIGHT CAROTID ARTERIES: Normal right common carotid artery (CCA). Normal right common carotid bulb. Normal origin of the right internal carotid (ICA) artery without a hemodynamically significant stenosis. Normal visualized cervical portion of the right internal carotid artery. Normal origin of the right external carotid artery (ECA). LEFT CAROTID ARTERIES: Normal left common carotid artery (CCA). Normal left common carotid bulb. Normal origin of the left internal carotid (ICA) artery without a hemodynamically significant stenosis. Normal visualized cervical portion of the left internal carotid artery. Normal origin of the left external carotid artery (ECA). VERTEBRAL ARTERIES: Normal bilateral vertebral arteries. IMPRESSION: Normal CTA Head and neck with contrast. Electronically Signed: Remi Miles MD at 18:28 EDT , STUDY: CT BRAIN WITHOUT CONTRAST REASON FOR EXAM: Female, 31 years old. head and neck pain RADIATION DOSAGE (If Supplied By Facility): CTDIvol = ( 44.99 ) mGy, DLP = ( 728.62 ) mGycm TECHNIQUE: Transaxial CT imaging of the brain was performed without administration of intravenous contrast material. Individualized dose optimization techniques were used for this CT. COMPARISON: No relevant priors. FINDINGS: Normal soft tissue structures. Normal calvarium. Normal size ventricles and extra-axial spaces for the patient''s age. Normal white matter tracts of the cerebral hemispheres. Normal basal ganglia and thalami. Normal brainstem. Normal cerebellum. There is no intracranial hemorrhage. There are no findings of an acute ischemic infarction. Normal visualized paranasal sinuses. CT/CTA Head AND Neck W/ Contrast IMPRESSION: Normal unenhanced CT scan of the brain. Electronically Signed: Remi Miles MD at 18:28 EDT ,
[2021-12-12 18:04] VITALS: BP 115/79; PULSE 59; RESP 20; O2SAT 100
[2021-12-12] MEDS: dexAMETHasone 10 MG/ML Vial IV (19:05)
[2021-12-12 19:12] VITALS: BP 116/72; PULSE 56; RESP 19; O2SAT 98
[2021-12-12] MEDS: 0.9% Normal Saline 1,000 ML 15 ML IV (19:12)
== END 2021-12-12 19:19 | disposition home or self-care (01) ==
PROVIDERS: Emergency Provider Emergency Medicine; Visit Provider Emergency Medicine
DX: G43.909 Migraine, unspecified, not intractable, without status migrainosus (principal); F17.290 Nicotine dependence, other tobacco product, uncomplicated
CPT/HCPCS: 70496; 70498; 80048; 85025; 96361; 96374; 96375; 99283; J7030; Q9967